=== PATIENT | male | born 2005 | race Caucasian/White ===

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

== ENCOUNTER 2023-12-10 10:25 | Emergency (ER) | payer SELFPAY ==
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
--- NOTE | ~2023-12-10 | CT_ITS ---
EXAMINATION: CT brain wo con DATE: 12/10/2023 10:51 INDICATION: Head injury. TECHNIQUE: Computed tomography (CT) of the head was performed without intravenous contrast. The mA wa s adjusted according to patient size. Iterative reconstruction technique was employed. The dose-lengt h product was 605.33 mGy-cm. COMPARISON: None FINDINGS: There is no intracranial hemorrhage, acute infarction, or abnormal intracranial mass lesion . The ventricles are normal in size. The orbits are normal. There is mild mucosal thickening in the e thmoid sinuses. The mastoid air cells are normal. There is left periorbital soft tissue swelling. IMPRESSION: 1. Normal brain. Reviewed, dictated and finalized at location A. IMPRESSION: 1. Normal brain.
[2023-12-10 10:28] VITALS: BP 151/107; PULSE 93; RESP 18; TEMP 36.8; O2SAT 100
[2023-12-10 10:33] VITALS: RESP 20; O2SAT 97
[2023-12-10 10:39] VITALS: BP 157/96; PULSE 89; RESP 17; O2SAT 100
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
[2023-12-10 11:42] VITALS: BP 129/79; PULSE 62; RESP 18; O2SAT 100
== END 2023-12-10 11:44 | disposition home or self-care (01) ==
PROVIDERS: Emergency Provider Physician Assistant; PCP Physician Assistant Medical
DX: S05.12XA Contusion of eyeball and orbital tissues, left eye, initial encounter (principal); S09.90XA Unspecified injury of head, initial encounter; Y04.2XXA Assault by strike against or bumped into by another person, initial encounter
CPT/HCPCS: 70450; 70486; 72125; 99284

== ENCOUNTER 2024-11-09 12:31 | Emergency (ER) | payer BC, SELFPAY ==
[2024-11-09 12:44] VITALS: BP 138/89; PULSE 75; RESP 16; TEMP 36.6; O2SAT 100
--- NOTE | 2024-11-09 13:54 | ED.GENADULT ---
HPI - General Adult General Chief complaint: Skin/Abscess/Foreign Body Stated complaint: RASH / FB L EAR Source: patient Mode of arrival: ambulatory Limitations: no limitations History of Present Illness HPI narrative: Patient presents for evaluation rash and left ear discomfort. He indicates he was exposed to poison chela about a week ago. The following day he developed a pruritic rash to the torso and extremities x4. He has not been taking any medication to assist with the symptoms. No new lotions, soaps, detergents, topical products. He also reports left ear discomfort for the last day. He has decreased hearing on that side. He thought was related to a cerumen impaction so we cleaned his ears with Q-tips. His mother thought she saw foreign body in his ear attempted to remove it. Related Data Home Medications ?Medication ?Instructions ?Recorded ?Confirmed ?Last Taken ?Type isotretinoin 10 mg capsule PO 09/04/24 09/04/24 Unknown History (Accutane) minoxidil 2.5 mg tablet 2.5 mg PO DAILY 09/04/24 11/09/24 Unknown History Allergies Allergy/AdvReac Type Severity Reaction Status Date / Time amoxicillin Allergy Unknown Unknown Verified 11/09/24 12:43 Review of Systems Review of Systems: CONSTITUTIONAL: Denies fever, chills, or sweats. EYES: Denies visual changes, redness, or discharge. ENT: Reports left ear discomfort with decreased hearing. Denies rhinorrhea, congestion, sore throat CARDIOVASCULAR: Denies chest pain, palpitations, or edema. RESPIRATORY: Denies cough or dyspnea. GASTROINTESTINAL: Denies abdominal pain, nausea, vomiting, or diarrhea. GENITOURINARY: Denies dysuria or hematuria. SKIN: Reports pruritic rash to the trunk and extremities x4. MUSCULOSKELETAL: Denies back pain, joint pain, or myalgia. NEUROLOGIC: Denies headache, numbness, dizziness, or weakness. PSYCHIATRIC: Denies anxiety or depression. [facility] Past Medical History Medical History Alopecia Surgical History Surgical History No pertinent past surgical history Family History Family History Mother Family history non-contributory Social History Social History Smoking status: Never smoker Alcohol intake: current Substance use: never Substance use type: does not use Do You Feel Safe in your Home?: Yes Lack of Transportation: No Lack of Food: Never True Current Housing: I Have Housing Concerned About Future Housing: No Difficulty Paying Gas/Electric Bills: No Difficulty Paying for Meds: No Currently Unemployed: No Education: High School Diploma/GED Difficulty w/ Childcare or Family Care: No Living arrangements: with family Occupation/Education: occupation Gender identity (if verbalized by the patient): Male Sexual Orientation (if Verbalized by the Patient): Straight or Heterosexual Exam Narrative: GENERAL: Well-appearing, well-nourished, and in no acute distress. HEAD: Normocephalic, atraumatic. EYES: PERRLA and EOMI. ENT: Nares clear, no rhinorrhea or epistaxis. Mucous membranes moist. Oropharynx without tonsillar hypertrophy exudate or other lesions. There is scant amount of dried sanguinous drainage in the left ear canal. There is erythema in the left ear canal without visible foreign body. Bilateral TMs pearly esquivel nonbulging NECK: Supple. No adenopathy or masses. No carotid bruits or JVD CHEST: Clear to auscultation. No respiratory distress. No wheezes rales or rhonchi HEART: Regular rate and rhythm. No murmur heard. Normal peripheral pulses. ABDOMEN: Soft, nontender, nondistended, normal active bowel sounds. EXTREMITIES: Normal range of motion. No edema. SKIN: There is erythema and some vesicles noted to the extremities x4 and trunk NEURO: No focal deficits. Alert and oriented x3. PSYCH: Normal mood and affect. Course Course Emergency Course: This is a 19-year-old male who presented for evaluation of a rash on left-sided ear discomfort. I do not appreciate a foreign body in the ear. He has some bleeding in the canal likely from attempting to retrieve the suspected foreign body. he also has evidence of otitis media. Will discharge with Augmentin, ofloxacin and steroids. Apply calamine lotion and take Benadryl as needed. Follow-up with primary provider. Go to the ER for worsening symptoms. Patient in agreement with plan care. Level of Care: Express Care Visit Vital Signs Vital signs: Vital Signs Temperature 36.6 C 11/09/24 12:44 Pulse Rate 75 11/09/24 12:44 Respiratory Rate 16 11/09/24 12:44 Blood Pressure 138/89 11/09/24 12:44 Pulse Oximetry 100 11/09/24 12:44 Oxygen Delivery Room Air 11/09/24 12:44 Temperature 36.6 C 11/09/24 12:44 Pulse Rate 75 11/09/24 12:44 Respiratory Rate 16 11/09/24 12:44 Blood Pressure 138/89 11/09/24 12:44 Pulse Oximetry 100 11/09/24 12:44 Oxygen Delivery Room Air 11/09/24 12:44 Medical Decision Making Vital Signs Vital Signs: Vital Signs Temperature 36.6 C 11/09/24 12:44 Pulse Rate 75 11/09/24 12:44 Respiratory Rate 16 11/09/24 12:44 Blood Pressure 138/89 11/09/24 12:44 Pulse Oximetry 100 11/09/24 12:44 Oxygen Delivery Room Air 11/09/24 12:44 Temperature 36.6 C 11/09/24 12:44 Pulse Rate 75 11/09/24 12:44 Respiratory Rate 16 11/09/24 12:44 Blood Pressure 138/89 11/09/24 12:44 Pulse Oximetry 100 11/09/24 12:44 Oxygen Delivery Room Air 11/09/24 12:44 Discharge Plan Discharge Clinical Impression: Poison chela dermatitis, Otitis media, Otitis externa Patient Disposition: Home Condition: Stable Instructions: Antibiotic Form, Poison Chela (ED), Ear Infection (ED) Patient Language: Hungarian Prescriptions: New prednisone 20 mg tablet See Rx Instructions .ROUTE .COMPLEX Qty: 18 0RF Rx Instructions: 2 tabs po daily x 5 days, then 1 tab po daily x 5 days, then 1/2 tab po daily x 6 days cefdinir 300 mg capsule 300 mg PO Q12H Qty: 20 0RF ofloxacin 0.3 % drops 10 drp LEFT EAR DAILY 7 Days Qty: 5 0RF No Action minoxidil 2.5 mg tablet 2.5 mg PO DAILY isotretinoin [Accutane] 10 mg capsule PO Follow-up/Referrals: Rebecca Mabry PA-C [Primary Care Provider, Family Practice] Time of Disposition: 13:42
== END 2024-11-09 13:48 | disposition home or self-care (01) ==
PROVIDERS: Emergency Provider Nurse Practitioner; PCP Physician Assistant Medical
DX: L23.7 Allergic contact dermatitis due to plants, except food (principal); H66.92 Otitis media, unspecified, left ear; H60.92 Unspecified otitis externa, left ear; L65.9 Nonscarring hair loss, unspecified
CPT/HCPCS: 99213; G0463